=== PATIENT | male | born 1950 | race Caucasian/White ===

== ENCOUNTER 2022-08-22 21:54 | Emergency (ER) | payer MEDICARE ==
[~2022-08-22] VITALS: Ht 175.3 cm; Wt 86.4 kg
[2022-08-22 22:10] VITALS: TEMP 97.6
[2022-08-22] MEDS ORDERED: OXYMETAZOLINE 0.05% NASAL SPRAY (AFRIN) ONE (22:10)
[2022-08-22 22:33] LABS: BASO # 0.1 10^3/uL (0.0-0.2); BASO % 0.5 % (0.0-1.0); EOS # 0.1 10^3/uL (0.0-0.5); HEMATOCRIT 36.4 % (42.0-52.0); HEMOGLOBIN 12.3 g/dl (13.5-17.5); LYMPH % 17.2 % (24.0-44.0); MEAN CORPUSCULAR HEMOGLOBIN 32.6 pg (27.0-33.0); MEAN CORPUSCULAR HGB CONC 33.8 g/dl (32.0-36.5); MEAN CORPUSCULAR VOLUME 96.6 fl (80.0-96.0); MONO % 8.2 % (2.0-8.0); NEUTROPHILS # 8.5 10^3/uL (1.5-8.5); NEUTROPHILS % 72.2 % (36.0-66.0); PLATELET COUNT, AUTOMATED 260 10^3/uL (150-450); RED BLOOD COUNT 3.77 10^6/uL (4.30-6.10); WHITE BLOOD COUNT 11.7 10^3/uL (4.0-10.0)
[2022-08-22 23:16] VITALS: BP 153/74; O2SAT 94
== END 2022-08-22 23:25 | disposition home or self-care (01) ==
LOC: M ED 21:54 → EDBD 21:54 → M ED 23:25
DX: R04.0 Epistaxis (principal); I25.2 Old myocardial infarction; Z95.0 Presence of cardiac pacemaker